=== PATIENT | female | born 1950 | race Two or more races ===

== ENCOUNTER 2021-04-08 09:24 | Inpatient (IN) | payer MEDICARE, BC ==
[~2021-04-08] VITALS: Ht 151.1 cm; Wt 59.5 kg
[2021-04-08 11:01] LABS: Basophils # (auto) 0 10 ^3/uL (0-0.2); Basophils % (auto) 0.7 % (0.0-2.0); Eosinophils # (auto) 0 10 ^3/uL (0-0.8); Eosinophils % (auto) 0.5 % (0.0-7.0); Hematocrit 39.5 % (36.0-46.0); Hemoglobin 13.1 g/dL (12.2-16.2); Lymphocytes % (auto) 15.9 % (10.0-50.0); Mean Corpuscular Hemoglobin 29.4 pg (28.0-32.0); Mean Corpuscular Hgb Conc. 33.2 g/dL (32.0-36.0); Mean Corpuscular Volume 88.8 fL (80.0-100.0); Monocytes # (auto) 0.3 10 ^3/uL (0-1.3); Monocytes % (auto) 4.6 % (0.0-12.0); Neutrophils # (auto) 5.1 10 ^3/uL (1.6-8.6); Neutrophils % (auto) 78.3 % (37.0-80.0); Nucleated Red Blood Cells % 0.1 %; Red Blood Cells 4.45 10^6/uL (4.0-5.20); Red Cell Distribution Width 13.8 % (11.8-14.3); White Blood Cell 6.5 10^3/uL (4.4-10.8)
[2021-04-08 11:17] LABS: Albumin 3.5 g/dL (3.4-5.0); Calcium 8.7 mg/dL (8.5-10.1); Magnesium 2.4 mg/dL (1.6-2.6)
[2021-04-08 11:24] LABS: BUN/Creatinine Ratio 22.6; Bilirubin, Total 0.4 mg/dL (0.2-1.0); Total Protein 7.3 g/dL (6.4-8.2)
[2021-04-08] MEDS ORDERED: OXYCODONE W/ ACETAMINOPHEN 5/325MG TABLET PO ONE (15:15)
[2021-04-08 15:41] LABS: Urine Bacteria NONE SEEN /hpf (None Seen); Urine Blood Negative /uL (Negative); Urine Mucus FEW (None Seen); Urine Specific Gravity 1.021 (1.001-1.035); Urine WBC 1 /hpf (0 - 5)
[2021-04-08] MEDS ORDERED: ONDANSETRON HCL 4 MG/2 ML VIAL IV PRN (21:00)
[2021-04-08] MEDS ORDERED: ACETAMINOPHEN 325 MG TAB PO PRN (21:00)
[2021-04-08] MEDS ORDERED: NITROGLYCERIN 0.4 MG SL TAB SL PRN (21:00)
[2021-04-08] MEDS ORDERED: TEMAZEPAM 15 MG CAP PO PRN (21:00)
[2021-04-08] MEDS ORDERED: DEXTROSE (50%) 50ML SYRG IV PRN (21:00)
[2021-04-08] MEDS ORDERED: HYDROcodone-ACET 5/325MG TAB PO PRN (21:00)
[2021-04-08] MEDS ORDERED: MORPHINE SULFATE INJECTION 2 MG/ML SYRG IV PRN (21:00)
[2021-04-08] MEDS: ACCU-CHEK COMFORT CURVE STRIP VI SCH (22:09)
[2021-04-08] MEDS: InsuLIN REG 1unit/0.01ml Soln (100units/ml) SC SCH (22:10)
[2021-04-08 23:44] VITALS: BP 145/58
[2021-04-09] MEDS: InsuLIN REG 1unit/0.01ml Soln (100units/ml) SC SCH ×4 (06:39→21:54)
[2021-04-09] MEDS: ACCU-CHEK COMFORT CURVE STRIP VI SCH ×4 (06:39→21:51)
[2021-04-09 06:51] LABS: Basophils # (auto) 0 10 ^3/uL (0-0.2); Basophils % (auto) 0.4 % (0.0-2.0); Eosinophils # (auto) 0 10 ^3/uL (0-0.8); Eosinophils % (auto) 0.7 % (0.0-7.0); Hematocrit 38.8 % (36.0-46.0); Hemoglobin 12.7 g/dL (12.2-16.2); Lymphocytes # (auto) 1.8 10 ^3/uL (0.4-5.4); Lymphocytes % (auto) 26.2 % (10.0-50.0); Mean Corpuscular Hgb Conc. 32.7 g/dL (32.0-36.0); Mean Corpuscular Volume 88.8 fL (80.0-100.0); Monocytes # (auto) 0.6 10 ^3/uL (0-1.3); Monocytes % (auto) 9.2 % (0.0-12.0); Neutrophils # (auto) 4.4 10 ^3/uL (1.6-8.6); Neutrophils % (auto) 63.5 % (37.0-80.0); Red Blood Cells 4.37 10^6/uL (4.0-5.20); Red Cell Distribution Width 13.6 % (11.8-14.3); White Blood Cell 6.9 10^3/uL (4.4-10.8)
[2021-04-09 07:07] LABS: BUN/Creatinine Ratio 36.6; Potassium 4.6 mmol/L (3.5-5.1)
[2021-04-09] MEDS ORDERED: LEVO100T8 PO (08:54)
[2021-04-09] MEDS ORDERED: METF-370 PO (08:54)
[2021-04-09] MEDS ORDERED: GLIP5TAB12 PO (08:54)
[2021-04-09] MEDS ORDERED: SIMV-8 PO (08:54)
[2021-04-09] MEDS ORDERED: PIO30T PO ×3 (08:54→17:17)
[2021-04-09] MEDS ORDERED: LISI-716 PO (08:54)
[2021-04-09 09:00] VITALS: BP 116/51
[2021-04-09] MEDS: ENOXAPARIN SOD 40 MG/0.4 ML SYRINGE SC SCH (10:00)
[2021-04-09 10:26] LABS: Cholesterol 116 mg/dL (< 200); HDL Cholesterol 48 mg/dL (40-59); LDL Cholesterol 50 mg/dL (< 100); Triglycerides 94 mg/dL (< 150)
[2021-04-09] MEDS ORDERED: ADENOSINE 55 MG in GIVE UN-DILUTED 0 ML IV STA (10:39)
[2021-04-09 13:00] VITALS: BP 134/62
[2021-04-09] MEDS ORDERED: GLIP10TA9 PO (17:14)
[2021-04-09] MEDS ORDERED: SIMV10TA84 PO (17:16)
[2021-04-09 17:19] VITALS: BP 113/67
[2021-04-09 21:51] VITALS: BP 107/68
[2021-04-10] VITALS (7 sets, daily range): BP systolic 115–131; BP diastolic 51–85
[2021-04-10] MEDS: ACCU-CHEK COMFORT CURVE STRIP VI SCH ×4 (06:18→21:35)
[2021-04-10] MEDS: InsuLIN REG 1unit/0.01ml Soln (100units/ml) SC SCH ×4 (06:22→21:34)
[2021-04-10] MEDS: ENOXAPARIN SOD 40 MG/0.4 ML SYRINGE SC SCH (10:31)
[2021-04-10] MEDS ORDERED: metFORMIN HYDROCHLORIDE 500 MG TAB PO SCH (12:00)
[2021-04-10] MEDS: glipiZIDE 5 MG TAB PO SCH (12:06)
[2021-04-10] MEDS: metFORMIN HYDROCHLORIDE 500 MG TAB PO SCH ×2 (13:11→21:35)
[2021-04-11 05:00] VITALS: BP 104/62
[2021-04-11] MEDS: InsuLIN REG 1unit/0.01ml Soln (100units/ml) SC SCH (06:25)
[2021-04-11] MEDS: ACCU-CHEK COMFORT CURVE STRIP VI SCH (06:26)
[2021-04-11] MEDS: glipiZIDE 5 MG TAB PO SCH (06:29)
== END 2021-04-11 09:53 | disposition home or self-care (01) | DRG 312 ==
LOC: EDBD 09:24 → ER 09:24 → TELE 20:47 → TELE-CENTR 22:54
PROVIDERS: ADMIT Nurse Practitioner; ATTEND Family Medicine
PROC: 4A02XM4 Measurement of Cardiac Total Activity, External Approach (ICD-10-PCS; principal; 2021-04-09)
DX: R55 Syncope and collapse (principal); S00.03XA Contusion of scalp, initial encounter; W18.30XA Fall on same level, unspecified, initial encounter; E11.9 Type 2 diabetes mellitus without complications; E03.9 Hypothyroidism, unspecified; E78.5 Hyperlipidemia, unspecified; Z20.822 Contact with and (suspected) exposure to COVID-19; R00.0 Tachycardia, unspecified; R53.83 Other fatigue; I10 Essential (primary) hypertension; Y93.89 Activity, other specified; Y92.89 Other specified places as the place of occurrence of the external cause; Y99.8 Other external cause status
CPT/HCPCS: 36415; 70450; 71045; 72125; 73630; 78452; 80048; 80053; 80061; 81001; 82306; 82550; 82962; 83036; 83735; 84443; 84484; 85025; 85379; 87426; 93005; 93017; 93306; 93886; G0378; J0153; J1815

== ENCOUNTER → 2021-06-09 | Outpatient (CLI) | payer MEDICARE, BC ==
[~2021-06-09] MED LIST: GLIP10TA9 PO; LEVO100T8 PO; LISI-716 PO; METF-370 PO; PIO30T PO; SIMV10TA84 PO
[2021-06-09 07:59] LABS: Basophils # (auto) 0.1 10 ^3/uL (0-0.2); Basophils % (auto) 0.9 % (0.0-2.0); Eosinophils # (auto) 0.1 10 ^3/uL (0-0.8); Eosinophils % (auto) 1.4 % (0.0-7.0); Hematocrit 40.5 % (36.0-46.0); Hemoglobin 13.7 g/dL (12.2-16.2); Lymphocytes # (auto) 1.8 10 ^3/uL (0.4-5.4); Lymphocytes % (auto) 33.2 % (10.0-50.0); Mean Corpuscular Hemoglobin 29.9 pg (28.0-32.0); Mean Corpuscular Hgb Conc. 33.9 g/dL (32.0-36.0); Mean Corpuscular Volume 88.3 fL (80.0-100.0); Monocytes # (auto) 0.3 10 ^3/uL (0-1.3); Monocytes % (auto) 6.2 % (0.0-12.0); Neutrophils # (auto) 3.1 10 ^3/uL (1.6-8.6); Neutrophils % (auto) 58.3 % (37.0-80.0); Red Blood Cells 4.59 10^6/uL (4.0-5.20); Red Cell Distribution Width 14.6 % (11.8-14.3); White Blood Cell 5.3 10^3/uL (4.4-10.8)
[2021-06-09 08:51] LABS: Albumin 4.1 g/dL (3.4-5.0); Calcium 9.6 mg/dL (8.5-10.1); Potassium 4.5 mmol/L (3.5-5.1)
[2021-06-09 08:55] LABS: Bilirubin, Total 0.5 mg/dL (0.2-1.0); Total Protein 7.5 g/dL (6.4-8.2)
== END | disposition home or self-care (01) ==
LOC: LAB 07:10
PROVIDERS: ATTEND Student in an Organized Health Care Education/Training Program
DX: E08.9 Diabetes mellitus due to underlying condition without complications (principal)
CPT/HCPCS: 36415; 80053; 80061; 84443; 85025

== ENCOUNTER → 2021-07-13 | Outpatient (CLI) | payer MEDICARE, BC | END | disposition home or self-care (01) | LOC: LAB 07:35 | PROVIDERS: ATTEND Student in an Organized Health Care Education/Training Program | DX: Z00.01 Encounter for general adult medical examination with abnormal findings (principal); E11.9 Type 2 diabetes mellitus without complications; I10 Essential (primary) hypertension | CPT/HCPCS: 36415; 83036; 84443 ==

== ENCOUNTER → 2021-07-24 | Outpatient (CLI) | payer MEDICARE, BC | END | disposition home or self-care (01) | LOC: LAB 10:47 | PROVIDERS: ATTEND Student in an Organized Health Care Education/Training Program | DX: Z00.01 Encounter for general adult medical examination with abnormal findings (principal); E11.9 Type 2 diabetes mellitus without complications; I10 Essential (primary) hypertension | CPT/HCPCS: 82274 ==

== ENCOUNTER → 2021-09-25 | Outpatient (CLI) | payer MEDICARE, BC | END | disposition home or self-care (01) | LOC: LAB 08:23 | PROVIDERS: ATTEND Student in an Organized Health Care Education/Training Program | DX: E03.9 Hypothyroidism, unspecified (principal) | CPT/HCPCS: 36415; 84443 ==

== ENCOUNTER → 2022-06-23 | Outpatient (CLI) | payer MEDICARE, BC ==
[2022-06-23 08:39] LABS: Basophils # (auto) 0 10 ^3/uL (0-0.2); Basophils % (auto) 0.7 % (0.0-2.0); Eosinophils # (auto) 0.1 10 ^3/uL (0-0.8); Eosinophils % (auto) 2.6 % (0.0-7.0); Hematocrit 38.9 % (36.0-46.0); Hemoglobin 13.3 g/dL (12.2-16.2); Lymphocytes # (auto) 1.8 10 ^3/uL (0.4-5.4); Lymphocytes % (auto) 48.1 % (10.0-50.0); Mean Corpuscular Hemoglobin 30.7 pg (28.0-32.0); Mean Corpuscular Hgb Conc. 34.1 g/dL (32.0-36.0); Mean Corpuscular Volume 89.8 fL (80.0-100.0); Monocytes # (auto) 0.3 10 ^3/uL (0-1.3); Monocytes % (auto) 7.8 % (0.0-12.0); Neutrophils # (auto) 1.6 10 ^3/uL (1.6-8.6); Neutrophils % (auto) 40.8 % (37.0-80.0); Nucleated Red Blood Cells % 0.1 %; Red Blood Cells 4.33 10^6/uL (4.0-5.20); Red Cell Distribution Width 15.5 % (11.8-14.3); White Blood Cell 3.8 10^3/uL (4.4-10.8)
[2022-06-23 09:53] LABS: Albumin 4.2 g/dL (3.4-5.0); Potassium 4.7 mmol/L (3.5-5.1)
[2022-06-23 10:01] LABS: BUN/Creatinine Ratio 26.1; Bilirubin, Total 0.5 mg/dL (0.2-1.0); Calcium 9.9 mg/dL (8.5-10.1); Total Protein 7.7 g/dL (6.4-8.2)
== END | disposition home or self-care (01) ==
LOC: LAB 08:04
PROVIDERS: ATTEND Student in an Organized Health Care Education/Training Program
DX: E11.42 Type 2 diabetes mellitus with diabetic polyneuropathy (principal); E03.9 Hypothyroidism, unspecified
CPT/HCPCS: 36415; 80053; 80061; 83036; 85025

== ENCOUNTER → 2022-11-08 | Outpatient (CLI) | payer MEDICARE, BC ==
[~2022-11-08] MED LIST changes: -LISI-716 PO; +LISI10TA34 PO; +SIMV10TA20 PO; -SIMV10TA84 PO
[2022-11-08 08:49] LABS: Albumin 3.7 g/dL (3.4-5.0); BUN/Creatinine Ratio 27.7 (10.0-20.0); Bilirubin, Total 0.6 mg/dL (0.2-1.0); Calcium 9.5 mg/dL (8.5-10.1); Total Protein 7.4 g/dL (6.4-8.2)
[2022-11-08 09:16] LABS: Micro Albumin 34.8 mg/L (0-30.0)
== END | disposition home or self-care (01) ==
LOC: LAB 06:51
PROVIDERS: ATTEND Student in an Organized Health Care Education/Training Program
DX: Z12.11 Encounter for screening for malignant neoplasm of colon (principal); E11.42 Type 2 diabetes mellitus with diabetic polyneuropathy; E03.9 Hypothyroidism, unspecified
CPT/HCPCS: 36415; 80053; 80061; 82043; 82274; 82570; 83036

== ENCOUNTER → 2023-10-07 | Outpatient (CLI) | payer MEDICARE, BC | END | disposition home or self-care (01) | LOC: LAB 15:30 | PROVIDERS: ATTEND Family Medicine | DX: L57.0 Actinic keratosis (principal); D48.5 Neoplasm of uncertain behavior of skin ==

== ENCOUNTER 2023-11-15 20:42 | Emergency (ER) | payer MEDICARE, BC ==
[~2023-11-15] VITALS: Ht 157.5 cm; Wt 65.5 kg
[2023-11-15] MEDS ORDERED: IBUP-1454 PO (22:58)
[2023-11-15] MEDS ORDERED: HYDR-4902 PO (22:58)
[2023-11-16] VITALS: PULSE 80; RESP 20; O2SAT 97
[2023-11-16] MEDS: MORPHINE SULFATE 4 MG/ML SYR/VIAL IV ONE (00:23)
[2023-11-16] MEDS: ONDANSETRON HCL 4 MG/2 ML VIAL IV ONE (00:24)
[2023-11-16 01:30] VITALS: BP 134/60; PULSE 85; RESP 20; TEMP 97.8; O2SAT 97
[2023-11-16] MEDS: HYDROcodone-ACET 5/325MG TAB PO ONE ×2 (01:31→01:34)
== END 2023-11-16 01:41 | disposition home or self-care (01) ==
LOC: ER 20:42 → EDBD 20:42 → ER 11-16 01:41
DX: S42.292A Other displaced fracture of upper end of left humerus, initial encounter for closed fracture (principal); E11.9 Type 2 diabetes mellitus without complications; I10 Essential (primary) hypertension; Z79.1 Long term (current) use of non-steroidal anti-inflammatories (NSAID); Z79.891 Long term (current) use of opiate analgesic; Z79.84 Long term (current) use of oral hypoglycemic drugs; Z79.899 Other long term (current) drug therapy; W01.0XXA Fall on same level from slipping, tripping and stumbling without subsequent striking against object, initial encounter; Y93.89 Activity, other specified; Y92.89 Other specified places as the place of occurrence of the external cause; Y99.8 Other external cause status
CPT/HCPCS: 73030; 96374; 96375; 99285; J2270; J2405

== ENCOUNTER → 2024-06-19 | Outpatient (CLI) | payer MEDICARE, BC ==
[~2024-06-19] MED LIST changes: +HYDR-4902 PO; +IBUP-1454 PO
[2024-06-19 12:21] LABS: Basophils # (auto) 0 10 ^3/uL (0-0.2); Basophils % (auto) 0.3 % (0.0-2.0); Eosinophils # (auto) 0 10 ^3/uL (0-0.8); Eosinophils % (auto) 0.5 % (0.0-7.0); Hematocrit 42.1 % (36.0-46.0); Hemoglobin 13.7 g/dL (12.2-16.2); Lymphocytes # (auto) 1.7 10 ^3/uL (0.4-5.4); Lymphocytes % (auto) 34.2 % (10.0-50.0); Mean Corpuscular Hemoglobin 30.1 pg (28.0-32.0); Mean Corpuscular Hgb Conc. 32.5 g/dL (32.0-36.0); Mean Corpuscular Volume 92.5 fL (80.0-100.0); Monocytes # (auto) 0.4 10 ^3/uL (0-1.3); Monocytes % (auto) 7.6 % (0.0-12.0); Neutrophils # (auto) 2.8 10 ^3/uL (1.6-8.6); Neutrophils % (auto) 57.4 % (37.0-80.0); Nucleated Red Blood Cells % 0.1 %; Platelet Count (auto) 208 10^3/uL (140-450); Red Blood Cells 4.55 10^6/uL (4.0-5.20); Red Cell Distribution Width 13.7 % (11.8-14.3); White Blood Cell 4.9 10^3/uL (4.4-10.8)
[2024-06-19 13:02] LABS: Alanine Aminotransferase 13 U/L (7-40); Alkaline Phosphatase 102 U/L (46-116); Anion Gap 8 (5-15); Aspartate Aminotransferase 17 U/L (13-40); BUN/Creatinine Ratio 25.8 (10.0-20.0); Blood Urea Nitrogen 16 mg/dL (9-23); Calcium 10.3 mg/dL (8.7-10.4); Carbon Dioxide 28 mmol/L (20-31); Sodium 143 mmol/L (136-145)
[2024-06-19 13:03] LABS: Albumin 4.9 g/dL (3.2-4.8); Bilirubin, Total 0.6 mg/dL (0.2-1.0); Chloride 107 mmol/L (98-107); Glucose 73 mg/dL (74-106); Total Protein 7.1 g/dL (5.7-8.2)
== END | disposition home or self-care (01) ==
LOC: LAB 11:52
PROVIDERS: ATTEND Internal Medicine
DX: C50.911 Malignant neoplasm of unspecified site of right female breast (principal); C50.912 Malignant neoplasm of unspecified site of left female breast
CPT/HCPCS: 36415; 80053; 83615; 85025; 86300

== ENCOUNTER → 2024-06-27 | Outpatient (CLI) | payer MEDICARE, BC ==
--- NOTE | 2024-06-27 13:37 | DVH ---
EXAM: NM BONE WHOLE BODY History: MALIGNANT NEOPLASM OF THE RT BREAST Comparison Study: None available TECHNIQUE: At approximately 2 hours following intravenous administration 25.2 mCi of Tc-99m MDP, ante rior and posterior whole body planar images were obtained. FINDINGS: No suspicious foci of tracer activity to suggest osteoblastic metastases. Whole-body images demonstrate unremarkable radiotracer uptake along the axial and appendicular skelet on. Physiologic radiotracer distribution in bilateral kidneys and urinary bladder. Degenerative changes in the left shoulder and left ankle. IMPRESSION: 1. No scintigraphic evidence of osteoblastic metastases.
== END | disposition home or self-care (01) ==
LOC: XYW 09:50
PROVIDERS: ATTEND Internal Medicine
DX: C50.911 Malignant neoplasm of unspecified site of right female breast (principal); C50.912 Malignant neoplasm of unspecified site of left female breast; M19.012 Primary osteoarthritis, left shoulder; M19.072 Primary osteoarthritis, left ankle and foot
CPT/HCPCS: 78306; A9503

== ENCOUNTER → 2024-07-13 | Outpatient (CLI) | payer MEDICARE, BC ==
[~2024-07-13] MED LIST changes: +LIDOCAINE-2% MPF SDV 5 ML IJ ONE
--- NOTE | 2024-07-13 12:05 | DVH ---
XY FLUOROGUIDANCE FOR NEEDLE PLAC HISTORY: LIGAMENT INJURY, SURGERY LEFT SHOULDER COMPARISON: None PROCEDURE: The risks and benefits of the procedure including infection, hemorrhage and technical failure were di scussed with the patient, who agreed to proceed. The patient was positioned supine on the fluoroscopy table. Time out was performed. The left shoulder was localized using fluoroscopy, and the location on the skin for needle insertion was marked. The r egion was prepped and draped using routine sterile technique. Approximately 2 cc of lidocaine was inj ected for local anesthesia. A 22 gauge spinal needle was inserted, and intra-articular location was c onfirmed by injection of less than 1 cc of iodinated contrast. Then 0.1mL Gadolinium and 10 mL saline was injected into the left shoulder without complication. Fluoroscopy time was 1.4 minutes. DAP 12. The patient was informed of the temporary precautions to take following the procedure as well as of t he potential signs and symptoms which may indicate the need to contact physician, and expressed unde rstanding of this discussion. IMPRESSION: Left shoulder gadolinium injection for MRI arthrogram.
--- NOTE | 2024-07-13 12:06 | DVH ---
XY L SHOULDER 1V XRAY HISTORY: LIGAMENT INJURY, SURGERY LEFT SHOULDER COMPARISON: None PROCEDURE: The risks and benefits of the procedure including infection, hemorrhage and technical failure were di scussed with the patient, who agreed to proceed. The patient was positioned supine on the fluoroscopy table. Time out was performed. The left shoulder was localized using fluoroscopy, and the location on the skin for needle insertion was marked. The r egion was prepped and draped using routine sterile technique. Approximately 2 cc of lidocaine was inj ected for local anesthesia. A 22 gauge spinal needle was inserted, and intra-articular location was c onfirmed by injection of less than 1 cc of iodinated contrast. Then 0.1mL Gadolinium and 10 mL saline was injected into the left shoulder without complication. Fluoroscopy time was 1.4 minutes. DAP 12. The patient was informed of the temporary precautions to take following the procedure as well as of t he potential signs and symptoms which may indicate the need to contact physician, and expressed under standing of this discussion. IMPRESSION: Left shoulder gadolinium injection for MRI arthrogram.
== END | disposition home or self-care (01) ==
LOC: XYW 10:44
PROVIDERS: ATTEND Internal Medicine
DX: M25.512 Pain in left shoulder (principal)
CPT/HCPCS: 23350; 73020; 77002; A9575

== ENCOUNTER → 2024-09-19 | Outpatient (CLI) | payer MEDICARE, BC ==
[~2024-09-19] MED LIST changes: -LIDOCAINE-2% MPF SDV 5 ML IJ ONE
[2024-09-19 11:39] LABS: Alanine Aminotransferase 16 U/L (7-40); Albumin 4.8 g/dL (3.2-4.8); Alkaline Phosphatase 112 U/L (46-116); Anion Gap 8 (5-15); Aspartate Aminotransferase 20 U/L (13-40); BUN/Creatinine Ratio 18.6 (10.0-20.0); Blood Urea Nitrogen 13 mg/dL (9-23); Calcium 10.1 mg/dL (8.7-10.4); Carbon Dioxide 28 mmol/L (20-31); Glucose 81 mg/dL (74-106); Sodium 144 mmol/L (136-145); Total Protein 7.2 g/dL (5.7-8.2)
[2024-09-19 11:40] LABS: Bilirubin, Total 0.6 mg/dL (0.2-1.0); Chloride 108 mmol/L (98-107)
== END | disposition home or self-care (01) ==
LOC: LAB 11:01
PROVIDERS: ATTEND Internal Medicine
DX: C50.911 Malignant neoplasm of unspecified site of right female breast (principal); C50.912 Malignant neoplasm of unspecified site of left female breast; E11.69 Type 2 diabetes mellitus with other specified complication; M84.81 Other disorders of continuity of bone, shoulder
CPT/HCPCS: 36415; 80053

== ENCOUNTER 2025-02-19 09:35 | Emergency (ER) | payer MEDICARE, BC ==
[~2025-02-19] VITALS: Ht 147.3 cm; Wt 60.0 kg
--- NOTE | 2025-02-19 09:50 | ED.PDOC ---
History of Present Illness HPI Comments 74-year-old female with PMHx DM, HTN, GERD presents to the ED via EMS with a chief complaint of syncopal episode onset today (02/19/2025). Per EMS, patient was taking shower when she experienced near syncopal episode, got out of the shower and sat on the toilet. Daughter gave patient a piece of candy, she experiences similar episodes when she is hypoglycemic. Patient experienced a syncope episode, went unresponsive for about 30 seconds, witnessed by daughter. Patient states she experienced RT flank pain yesterday as well as nausea, vomiting, is currently experiencing epigastric discomfort. Denies any fever, chills, diarrhea, constipation, chest pain, shortness of breath, headache, blurred vision, numbness/tingling, weakness, dysuria, hematuria, hematemesis, melena, blood in stool. No other symptoms or modifying factors present at this time. Time Seen by MD: 09:45 Reviewed Notes: Medications, Allergies Allergies: Coded Allergies: NO KNOWN ALLERGIES (Unverified , 04/08/21) Home Meds Active Scripts Ibuprofen (Ibuprofen) 600 Mg Tab, 1 TAB PO TID, #30 TAB Prov:RANDY AGUILAR 11/15/23 Hydrocodone-Acetaminophen (Hydrocodone Bitartrate/AC 5-325 mg) 1 Tab Tab, 1 TAB PO Q6HPRN PRN, #20 TAB Prov:RANDY AGUILAR 11/15/23 Reported Medications Pioglitazone Hydrochloride (ACTOS TABLET) 30 Mg Tb, 0.5 TAB PO HS, #30 TAB 5 Refills 04/09/21 Pioglitazone Hydrochloride (ACTOS TABLET) 30 Mg Tb, 1 TAB PO DAILY, #30 TAB 5 Refills 04/09/21 Simvastatin (Simvastatin) 10 Mg Tab, 10 MG PO DAILY for 30 Days, MG 04/09/21 Glipizide (Glipizide) 10 Mg Tab, 10 MG PO DAILY for 30 Days, MG 04/09/21 Levothyroxine Sodium (Levothyroxine Sodium) 100 Mcg Tab, 125 MCG PO QAM for 30 Days, MCG 04/09/21 Lisinopril (Lisinopril) 10 Mg Tab, 20 MG PO DAILY for 30 Days, MG 04/09/21 Metformin Hydrochloride (Metformin Hcl) 500 Mg Tab, 1000 MG PO IBID for 30 Days, MG 04/09/21 Information Source: Patient, Emergency Med Personnel Mode of Arrival: EMS Severity: Moderate Timing: Hours Duration: Since onset Prehospital treatment: None Past Medical History PAST MEDICAL HISTORY: DM, GERD, HTN Surgical History: Denies all surgeries 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 Family History Family History: Reviewed,noncontributory to illness Social History Smoker: Non-Smoker Alcohol: Denies ETOH Use Drugs: Denies Drug Use Lives In: Home Constitutional: denies: chills, diaphoresis, fatigue, fever, malaise, sweats, weakness, others EENTM: denies: blurred vision, double vision, ear bleeding, ear discharge, ear drainage, ear pain, ear ringing, eye pain, eye redness, hearing loss, mouth pain, mouth swelling, nasal discharge, nose bleeding, nose congestion, nose pain, photophobia, tearing, throat pain, throat swelling, voice changes, others Respiratory: denies: cough, hemoptysis, orthopnea, SOB at rest, shortness of breath, SOB with excertion, stridor, wheezing, others Cardiovascular: denies: chest pain, dizzy spells, diaphoresis, Dyspnea on exertion, edema, irregular heart beat, left arm pain, lightheadedness, palpitations, PND, syncope, others Gastrointestinal: reports: abdominal pain, nausea, vomiting; denies: abdomen distended, blood streaked bowels, constipated, diarrhea, dysphagia, difficulty swallowing, hematemesis, melena, poor appetite, poor fluid intake, rectal bleeding, rectal pain, others Genitourinary: reports: flank pain; denies: abnormal vagina bleeding, burning, dyspareunia, dysuria, frequency, hematuria, incontinence, pain, , vagina discharge, urgency, others Neurological: reports: others (syncope); denies: dizziness, fainting, headache, left sided numbness, left sided weakness, numbness, paresthesia, pre-existing deficit, right sided numbness, right sided weakness, seizure, speech problems, tingling, tremors, weakness Musculoskeletal: denies: back pain, gout, joint pain, joint swelling, muscle pain, muscle stiffness, neck pain, others Integumetry: denies: bruises, change in color, change in hair/nails, dryness, laceration, lesions, lumps, rash, wounds, others Allergic/Immunocompromised: denies: Difficulty Healing, Frequent Infections, Hives, Itching, others Hematologic/Lymphatic: denies: anemia, blood clots, easy bleeding, easy bruising, swollen glands, others Endocrine: denies: excessive hunger, excessive sweating, excessive thirst, excessive urination, flushing, intolerance to cold, intolerance to heat, unexplained weight gain, unexplained weight loss, others Psychiatric: denies: anxiety, bipolar disorder, depression, hopeless, panic disorder, schizophrenia, sleepless, suicidal, others All Other Systems: Reviewed and Negative Physical Exam General Appearance: No Apparent Distress, Normal HEENT: Normal ENT Inspection, Pharynx Normal, TMs Normal Neck: Full Range of Motion, Non-Tender, Normal, Normal Inspection Respiratory: Chest Non-Tender, Lungs Clear, No Accessory Muscle Use, No Respiratory Distress, Normal Breath Sounds Cardiovascular: No Edema, No JVD, No Murmur, No Gallop, Normal Peripheral Pulses, Regular Rate/Rhythm Breast Exam: Deferred Gastrointestinal: No Organomegaly, Non Tender, No Pulsatile Mass, Normal Bowel Sounds, Soft Genitalia: Deferred Pelvic: Deferred Rectal: Deferred Extremities: No calf tenderness, Normal capillary refill, Normal inspection, Normal range of motion, Non-tender, No pedal edema Musculoskeletal : Apperance: Normal Neurologic: Alert, mine utility operator II-XII nml as Tested, No Motor Deficits, Normal Affect, Normal Mood, No Sensory Deficits Cerebellar Function: Normal Reflexes: Normal Skin: Dry, Normal Color, Warm Lymphatic: No Adenopathy Was a procedure done? Was a procedure done?: No Differential Dx Considerations may include: ACS, CVA, viral syndrome, electrolyte abnormality, cardiac arrhythmia, infectious etiology X-Ray, Labs, Meds, VS Vital Signs Date Time Temp Pulse Resp B/P (MAP) Pulse Ox O2 Delivery O2 Flow Rate FiO2 02/19/25 12:00 98.7 91 24 102/40 (60) 95 98.7 02/19/25 12:00 96 02/19/25 12:00 95 02/19/25 10:18 100 02/19/25 10:00 94 23 95 Room Air* 0 21 02/19/25 10:00 98.7 94 23 108/36 (60) 95 98.7 02/19/25 09:58 101 02/19/25 09:45 98.2 99 14 127/76 95 98.2 Lab Test 02/19/25 13:53 02/19/25 13:21 02/19/25 11:04 02/19/25 10:13 Range/Units Urine Color Yellow Yellow Urine Clarity Clear Clear Urine pH 5.5 5.0-9.0 Urine Specific [place] 1.032 1.001-1.035 Urine Protein Negative Negative Urine Ketones 3+ H Negative Urine Blood Negative Negative /uL Urine Nitrite Negative Negative Urine Bilirubin Negative Negative Urine Urobilinogen Normal Negative mg/dL Urine Leukocyte Esterase Negative Negative /uL Urine RBC 1 0 - 4 /hpf Urine Microscopic WBC 4 0-5 /HPF Urine Squamous Epithelial Cells Few <5 /hpf Urine Bacteria Few H None Seen /hpf Urine Mucus Few None Seen Urine Glucose 4+ H Normal mg/dL Troponin I High Sensitivity 7 8 7 </=34 ng/L White Blood Count 6.9 4.4-10.8 10^3/uL Red Blood Count 4.64 4.0-5.20 10^6/uL Hemoglobin 14.1 12.2-16.2 g/dL Hematocrit 42.4 36.0-46.0 % Mean Corpuscular Volume 91.3 80.0-100.0 fL Mean Corpuscular Hemoglobin 30.4 28.0-32.0 pg Mean Corpuscular Hemoglobin Concent 33.4 32.0-36.0 g/dL Red Cell Distribution Width 15.0 H 11.8-14.3 % Platelet Count 169 140-450 10^3/uL Mean Platelet Volume 8.2 6.9-10.8 fL Neutrophils (%) (Auto) 86.7 H 37.0-80.0 % Lymphocytes (%) (Auto) 5.9 L 10.0-50.0 % Monocytes (%) (Auto) 7.0 0.0-12.0 % Eosinophils (%) (Auto) 0.0 0.0-7.0 % Basophils (%) (Auto) 0.4 0.0-2.0 % Neutrophils # (Auto) 6.0 1.6-8.6 10 ^3/uL Lymphocytes # (Auto) 0.4 0.4-5.4 10 ^3/uL Monocytes # (Auto) 0.5 0-1.3 10 ^3/uL Eosinophils # (Auto) 0 0-0.8 10 ^3/uL Basophils # (Auto) 0 0-0.2 10 ^3/uL Nucleated Red Blood Cells 0.0 % Sodium Level 142 136-145 mmol/L Potassium Level 3.9 3.5-5.1 mmol/L Chloride Level 105 98-107 mmol/L Carbon Dioxide Level 25 20-31 mmol/L Anion Gap 12 5-15 Blood Urea Nitrogen 15 9-23 mg/dL Creatinine 0.66 0.550-1.02 mg/dL Glomerular Filtration Rate Calc 93 >90 mL/min BUN/Creatinine Ratio 22.7 H 10.0-20.0 Serum Glucose 140 H 74-106 mg/dL Calcium Level 9.1 8.7-10.4 mg/dL [place] [address] Ph: [phone] DIAGNOSTIC IMAGING Diagnostic Imaging Report : [id number] Signed PATIENT: ANDRIY DAHL ACCT: [id number] UNIT: [id number] : 1950 LOC: ER ROOM / BED: / AGE / SEX: 74 / F ADM STATUS: REG ER SERVICE [id number] ORDERING PHYSICIAN: EFRA MANNING MD PROCEDURE(s): CXRP - CHEST PORTABLE REASON: near syncope ORDER NUMBER(s): [id number], ACCESSION NUMBER(s): [id number] EXAM: XY CHEST PORTABLE Indication: near syncope Technique: Single frontal view of the chest was obtained Comparison: CHEST PORTABLE on DOS: 04/08/21 FINDINGS: Lines and Tubes: None Lungs: No focal consolidation. Pleura: No effusion. No pneumothorax. Cardiomediastinal contours: Unremarkable Bones: No acute osseous abnormality. IMPRESSION: No acute cardiopulmonary disease. ATED BY: NICOLE WRIGHT MD DICTATED DATE/TIME: 02/19/251049 SIGNED BY: NICOLE WRIGHT MD SIGNED DATE/TIME: 02/19/251049 CC: Time of 1ST Reevaluation: 10:15 Reevaluation 1ST: Unchanged Patient Education/Counseling: Diagnosis, Treatment, Prognosis Family Education/Counseling: No Family Present SEPSIS Sepsis Screen Physician Orders Chest Portable (02/19/25 09:56) Head Without Contrast (02/19/25 12:06) Vital Signs Date Time Temp Pulse Resp B/P (MAP) Pulse Ox O2 Delivery O2 Flow Rate FiO2 02/19/25 12:00 98.7 91 24 102/40 (60) 95 98.7 02/19/25 12:00 96 02/19/25 12:00 95 02/19/25 10:18 100 02/19/25 10:00 94 23 95 Room Air* 0 21 02/19/25 10:00 98.7 94 23 108/36 (60) 95 98.7 02/19/25 09:58 101 02/19/25 09:45 98.2 99 14 127/76 95 98.2 Laboratory Tests Test 02/19/25 10:13 White Blood Count 6.9 10^3/uL (4.4-10.8) Departure 1 Departure Time of Disposition: 14:34 (Patient presented with syncope today and should be admitted. Data: 1. I ordered and reviewed the result of at least 3 labs including a CBC, BMP, and troponin. 2. I independently interpreted the following tests: EKG which shows a sinus arrhythmia and a chest x-ray which shows benign c hest and a CT head which shows benign brain.Risk:This patient has a high risk of morbidity due to further diagnostic testing or treatment and may suffer from an acute cardiac, neurologic, or infectious disorder. Rationale: Patient should be admitted to the hospital for further management.) Impression: Primary Impression: Syncope and collapse Additional Impression: Generalized weakness Disposition: ADMITTED INPATIENT Admit to: Tele Condition: Guarded Critical Care Note Critical Care Time?: Yes Critical care comment: Syncope and collapse Authorized and Performed by: Efra Manning MD Total critical care time: Approximately 37 minutes Due to a high probability of clinically significant, life threatening deterioration, the patient required my highest level of preparedness to intervene emergently and I personally spent this critical care time directly and personally managing the patient. This critical care time included obtaining a h istory; examining the patient; pulse oximetry; ordering and review of studies; arranging urgent treatment with development of a management plan; evaluation of patient's response to treatment; frequent reassessment; and, discussions with other providers. This critical care time was performed to assess and manage the high probability of imminent, life-threatening deterioration that could result in multi-organ failure. It was exclusive of separately billable procedures and treating other patients and teaching time. Please see my other sections and the rest of the note for further information on patient assessment and treatment. Stability Stability form required: No Heart Score Heart Score: Heart Score Response (Comments) Value History N/A 0 EKG N/A 0 Age N/A 0 Risk Factors N/A 0 Troponin N/A 0 Total 0 I personally scribed for EFRA MANNING MD ([email or web address]) on 02/19/25 at 09:50. Electronically submitted by Dot Collins ([email or web address]). I personally scribed for EFRA MANNING MD ([email or web address]) on 02/19/25 at 10:54. Electronically submitted by Dot Collins ([email or web address]). EFRA MANNING MD Feb 19, 2025 09:50
[2025-02-19 10:00] VITALS: PULSE 94; RESP 23; O2SAT 95
--- NOTE | 2025-02-19 10:07 | ECG ---
[facility] Test Date: 2025-02-19 Test Time: 09:58:40 Pat Name: ANDRIY DAHL Department: [facility] ED Patient ID: [id number] Room: Gender: F Ironworker: CHIDI : 1950 Requested By: EFRA MANNING Order Number: [id number] Reading MD: Measurements Intervals [place] Rate: 101 P: 32 MA: 169 QRS: 10 QRSD: 104 T: 26 QT: 384 QTc: 498 Interpretive Statements Sinus tachycardia Nonspecific T abnormalities, anterior leads Borderline prolonged QT interval Please click the below link to view image of tracing.
[2025-02-19 10:33] LABS: Hematocrit 42.4 % (36.0-46.0); Hemoglobin 14.1 g/dL (12.2-16.2); Mean Corpuscular Hemoglobin 30.4 pg (28.0-32.0); Mean Corpuscular Volume 91.3 fL (80.0-100.0); Nucleated Red Blood Cells % 0.0 %
[2025-02-19 10:44] LABS: Chloride 105 mmol/L (98-107); Potassium 3.9 mmol/L (3.5-5.1); Sodium 142 mmol/L (136-145)
[2025-02-19 10:45] LABS: Anion Gap 12 (5-15); Calcium 9.1 mg/dL (8.7-10.4); Carbon Dioxide 25 mmol/L (20-31)
[2025-02-19 10:50] LABS: BUN/Creatinine Ratio 22.7 (10.0-20.0); Blood Urea Nitrogen 15 mg/dL (9-23); Glucose 140 mg/dL (74-106)
--- NOTE | 2025-02-19 10:52 | DVH ---
EXAM: XY CHEST PORTABLE Indication: near syncope Technique: Single frontal view of the chest was obtained Comparison: CHEST PORTABLE on DOS: 04/08/21 FINDINGS: Lines and Tubes: None Lungs: No focal consolidation. Pleura: No effusion. No pneumothorax. Cardiomediastinal contours: Unremarkable Bones: No acute osseous abnormality. IMPRESSION: No acute cardiopulmonary disease.
--- NOTE | 2025-02-19 12:52 | DVH ---
CT HEAD WITHOUT CONTRAST Indication: syncope EXAM DATE: 02/19/2025 12:09 PM COMPARISON: HEAD WITHOUT CONTRAST on DOS: 04/08/21 TECHNIQUE: CT of the head without intravenous contrast. RADIATION DOSE: CTDIvol: 51 mGy, DLP: 908 mGy*cm FINDINGS: There is no intracranial hemorrhage. There is no extra-axial fluid, mass, mass effect or midline shif t. The ventricles are midline and normal in size. Basilar cisterns are patent. Quiñonez-white differentia tion is maintained. 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 The paranasal sinuses demonstrate mucosal thickening right maxillary sinus. Small right mastoid effus ion.. Imaged portion of the orbits are unremarkable. IMPRESSION: No intracranial hemorrhage or mass effect.
[2025-02-19 14:00] VITALS: BP 112/43; PULSE 88; RESP 24; TEMP 98.6; O2SAT 95
[2025-02-19 14:06] LABS: Urine Protein, UAD Negative (Negative)
--- NOTE | 2025-02-19 15:30 | ED.PDOC ---
Departure 1 Departure Time of Disposition: 15:30 (Patient refused admission and wants to go home. We will discharge patient home with outpatient follow up) Impression: Primary Impression: Syncope and collapse Additional Impression: Generalized weakness Disposition: HOME / SELF CARE / HOMELESS Condition: Stable Additional Instructions: Your workup today was benign. You can take Tylenol or Motrin as needed for pain. You should follow up with your regular doctor within 1 week. You should stay well rested and well hydrated. If your symptoms worsen or you have any other concerns please return to the emergency room. Discharged With: Outside Sales Consultant EFRA MANNING MD Feb 19, 2025 15:30
== END 2025-02-19 15:44 | disposition home or self-care (01) ==
LOC: EDBD 09:35 → ER 09:35
DX: R55 Syncope and collapse (principal); E11.649 Type 2 diabetes mellitus with hypoglycemia without coma; I10 Essential (primary) hypertension; R53.1 Weakness; R10.A0 Flank pain, unspecified side
CPT/HCPCS: 36415; 70450; 71045; 80048; 81001; 82947; 84484; 85025; 93005